=== PATIENT | female | born 1960 | race Caucasian/White ===

== ENCOUNTER 2019-04-28 16:46 | Emergency (ER) | payer SELFPAY ==
[2019-04-28] VITALS (7 sets, daily range): BP systolic 152–181; BP diastolic 101–122; PULSE 89–100; RESP 17–18; TEMP 36.1; O2SAT 95–98; BMI 24.2
--- NOTE | 2019-04-28 18:25 | CT_ITS ---
STUDY: CT BRAIN WITHOUT CONTRAST REASON FOR EXAM: Female, 58 years old. Slurred speech, blurred vision RADIATION DOSAGE (If Supplied By Facility): CTDIvol = ( 44.99 ) mGy, DLP = ( 779.24 ) mGycm TECHNIQUE: Transaxial CT imaging of the brain was performed without administration of intravenous contrast material. Individualized dose optimization techniques were used for this CT. COMPARISON: No relevant priors. FINDINGS: Normal soft tissue structures. Normal calvarium. Normal size ventricles and extra-axial spaces for the patient's age. Normal white matter tracts of the cerebral hemispheres. Normal basal ganglia and thalami. Normal brainstem. Normal cerebellum. There is no intracranial hemorrhage. There are no findings of an acute ischemic infarction. Normal visualized paranasal sinuses. CT/Brain/Head without Contrast IMPRESSION: Normal unenhanced CT scan of the brain. Electronically Signed: Anderson Wright MD at 19:07 EDT , Service support ,
--- NOTE | 2019-04-28 18:50 | RAD_ITS ---
STUDY: X-RAY CHEST REASON FOR EXAM: Female, 58 years old. Chest pain/pressure TECHNIQUE: PA and lateral views of the chest. COMPARISON: None. FINDINGS: There are interstitial fibrotic changes of the lungs. There is no demonstrated pleural abnormality. Normal size heart. Normal mediastinum and wing. Normal visualized pulmonary arteries. Normal visualized aortic arch and descending thoracic aorta. Normal visualized thoracic spine. Normal visualized ribs, clavicles, and shoulders. There is no demonstrated abnormality of the visualized soft tissue structures of the upper abdomen. RAD/Chest PA and Lateral IMPRESSION: Degenerative changes, as described above. No demonstrated acute cardiopulmonary process. Electronically Signed: Anderson Wright MD at 19:09 EDT , Service support ,
[2019-04-28 19:06] LABS: AST(SGOT) 13 U/L (15-37); Absolute Lymphocyte Count 1.79 X10^3/uL (0.83-4.51); Absolute Neutrophil Count 5.3 X10^3/uL (2.0-7.7); Alanine Aminotransfer ALT/SGPT 13 U/L (13-56); Albumin, Serum 3.2 g/dL (3.2-5.0); Alkaline Phosphatase 139 U/L (45-117); Anion Gap 7 (5-15); BUN 12 mg/dL (7-18); BUN/Creat Ratio 19.9 RATIO (10-20); Basophil# 0.05 X10^3/uL; Basophil% 0.6 % (0-1); Bilirubin, Direct 0.22 mg/dL (0.00-0.30); Calcium,Total 9.2 mg/dL (8.5-10.1); Chloride 100 mmol/L (98-107); EST Glomerular Filtration Rate 109 mL/min (>60); Eosinophil# 0.06 X10^3/uL; Eosinophils% 0.7 % (0-5); Est Glom Filt Rate - Afr Amer 132 mL/min (>60); Estimated Creatinine Clearance 105.61 ml/min; Globulin 4.5 g/dL (2.2-4.2); Glucose 105 mg/dL (74-106); Hematocrit 53.6 % (37-47); Lymphocyte # 1.79 X10^3/ul (4.0); Lymphocyte % 22.2 % (19-41); Mean Corp Hgb Conc 35.3 g/dL (32-36); Mean Corpuscular Hgb 38.3 pg (27.0-32.0); Mean Corpuscular Volume 108.5 fL (81-99); Mean Platelet Vol. 9.9 fl (6.2-12.0); Monocyte# 0.84 X10^3/uL; Monocyte% 10.4 % (0-10); NRBC Flagged by Analyzer 0 % (0-5); Neutrophil # 5.31 X10^3/uL (2.7-7.7); Neutrophil % 65.7 % (47-70); Platelet Count 209 K/mm3 (150-450); Potassium 3.2 mmol/L (3.5-5.1); Protein, Total 7.7 g/dL (6.4-8.2); RBC Distribution Width CV 12.5 % (11.6-14.6); RBC Distribution Width SD 50.4 fl (35.1-43.9); Red Blood Count 4.94 M/mm3 (4.2-5.4); Sodium Level 135 mmol/L (136-145); White Blood Count 8.1 K/mm3 (4.4-11.0)
[2019-04-28 19:12] LABS: POSITIVE COUNT NO; POSITIVE DIFFERENTIAL NO; POSITIVE MORPHOLOGY NO
[2019-04-28 19:14] LABS: Hemoglobin 18.9 g/dL (12.0-15.0)
[2019-04-28 19:27] LABS: Bacteria 0 SEEN /hpf (None Seen); Red Blood Cells-Urine 0 SEEN /hpf (0-5)
[2019-04-28 19:31] LABS: Color, Urine Yellow (Yellow); Glucose, Dipstick Normal (Normal); Ketone-Dipstick 5 mg/dl (Negative); Leukocyte Esterase-Dipstick 25 /ul (Negative); Nitrite-Dipstick Negative (Negative); Occult Blood-Urine Negative /ul (Negative); Protein-Dipstick 30 mg/dl (Negative); Specific Gravity, Urine 1.025 (1.002-1.030); Urine Clarity Sl. Cloudy (Clear); Urine Urobilinogen 4 mg/dl (Normal)
[2019-04-28 19:32] LABS: Urine Bilirubin Dipstick 1 mg/dL (Negative)
[2019-04-28 19:46] LABS: Mucous, Urine 2+ /hpf (<or=2+); Squamous Epithelial Cells - UA 0-5 SEEN /hpf (5-10)
[2019-04-28 19:47] LABS: White Blood Cells 0-5 SEEN /hpf (0-5)
--- NOTE | 2019-04-28 20:09 | ED.DCSUM_ITS ---
- ER Visit Summary Date of Service: 04/28/19 Chief Complaint: Elevated blood pressure History of Present Illness: The patient is a 58 F who presents emerged part with elevated blood pressure. She states that she was on blood pressure medications in the past but stopped them herself that 1/2 to 2 years ago. That time she was on hydrochlorothiazide and losartan. States that Sunday while at work she had a blood pressure checked it was 230/110. Over the weekend she had some abdominal cramps intermittent blurred vision sometimes she states that her speech was not clear she occasionally will feel clammy. States she is under a lot of stress at work due to the nature of it. She states that earlier today she is having some abdominal pain that felt like she needed to have diarrhea but nothing came for that. She is a smoker. Physical Examination: Afebrile vital signs are stable blood pressure 152/105 Gen: Well-nourished well-developed Head: Normocephalic atraumatic Eyes: Perrl EOMI ENT: TMs clear no rhinorrhea moist mucous membranes Neck: Supple no lymphadenopathy no JVD nontender CVS: Regular rate rhythm no murmurs normal S1-S2 Respiratory: No distress clear to auscultation bilaterally chest nontender Abdomen: Soft nontender nondistended normal bowel sounds no masses Back: Nontender Extremity: Nontender no edema Skin: Normal color no rash Neuro: alert orientated ?3 CN II-XII intact normal strength sensation reflexes gait cerebellar Psych: Depressed tearful anxious at times Test Results: EKG shows sinus rhythm at a rate of 87. Hemoglobin 18.9 sodium 135 potassium 3.2. Urine showed 30+ protein troponin negative chest x-ray negative CT brain negative Emergency Department Course and Treatment: I think the patient needs treated for her hypertension. I will start her losartan hydrochlorothiazide combination. She also would benefit from an antidepressant/anxiolytic. She is to follow-up with her primary care doctor and talk further about this. Of asked that she not focus on her blood pressure multiple times a day rather take sporadic reading and take them to her doctor. Impression: 1. Hypertension new diagnosis This note was generated with [employer] software. It may contain incorrect words, spelling, and punctuation that were not noted in review of the chart prior to signing ED Disposition - Plan for ED Patient: Disposition: Home or Assisted Living Instructions: HYPERTENSION, New (Begin Treatment) Prescriptions: Losartan/Hydrochlorothiazide [Losartan-Hctz 50-12.5 mg Tab] 1 ea PO DAILY #30 tab Prescription Printed Referrals: Oscar Marx [Primary Care Provider] - 1 Week Additional Instructions: Your potassium today was 3.2. I recommend you getting some additional foods that are high in potassium. He will be being placed on losartan and hydrochlorothiazide. Hydrochlorothiazide can decreased your potassium. Therefore I strongly recommend that you follow-up with your doctor and have your potassium rechecked. Please discuss stress and stress reduction with your doctor at that appointment.
[2019-04-28] MEDS: Losartan Potassium 50 MG Tablet PO (20:19)
[2019-04-28] MEDS: hydroCHLOROthiazide 12.5mg 12.5 MG PO (20:20)
== END 2019-04-28 20:23 | disposition home or self-care (01) ==
PROVIDERS: Emergency Provider Emergency Medicine; Family Provider Family Medicine
DX: I10 Essential (primary) hypertension (principal); R10.9 Unspecified abdominal pain; R05 Cough; R11.0 Nausea; H53.8 Other visual disturbances; R23.1 Pallor; Z91.14 Patient's other noncompliance with medication regimen; F17.200 Nicotine dependence, unspecified, uncomplicated
CPT/HCPCS: 70450; 71046; 80048; 80076; 81001; 84484; 85025; 93005; 99285; A4216

== ENCOUNTER 2019-05-15 20:15 | Observation (INO) | payer SELFPAY ==
[2019-04-28 16:47] VITALS: BMI 24.2
[2019-05-15] VITALS (7 sets, daily range): BP systolic 65–139; BP diastolic 40–87; PULSE 72–79; RESP 16–24; TEMP 36.4–36.8; O2SAT 94–99; BMI 24.5; BMI 23.7
--- NOTE | 2019-05-15 20:19 | ED.RN ---
CALLED FOR EKG PER RN REQUEST, PULLED OLD EKG FOR
[2019-05-15 20:31] LABS: Bedside Glucose 116 mg/dL (70-110)
--- NOTE | 2019-05-15 20:32 | EKG12_ITS ---
Test Reason : Blood Pressure : / mmHG Vent. Rate : 069 BPM Atrial Rate : 069 BPM P-R Int : 162 ms QRS Dur : 102 ms QT Int : 436 ms P-R-T Axes : 019 -04 047 degrees QTc Int : 467 ms Normal sinus rhythm Septal infarct , age undetermined Abnormal ECG Confirmed by ADAN MCNAMARA, TIFFANIE ([id number]), visual effects editor DONOVAN [place] ([id number]) on 05/21/2019 9:37:35 AM Referred By: LUZMA Confirmed By:FREDRICK ARELLANO MD
--- NOTE | 2019-05-15 20:32 | RAD_ITS ---
STUDY: X-RAY CHEST REASON FOR EXAM: Female, 58 years old. Syncope TECHNIQUE: Frontal view COMPARISON: April 28, 2019 FINDINGS: The lungs are expanded. Mild pulmonary interstitial prominence. Normal size heart. Normal mediastinum and wing. Normal visualized pulmonary arteries. Normal visualized aortic arch and descending thoracic aorta. Mild degenerative changes of the thoracic spine. Normal visualized ribs, clavicles, and shoulders. There is no demonstrated abnormality of the visualized soft tissue structures of the upper abdomen. RAD/Chest 1 View (Portable) IMPRESSION: Mild pulmonary interstitial prominence. Electronically Signed: Nikhil Turner DO at 20:54 EDT Tel [phone], Service support ,
--- NOTE | 2019-05-15 20:37 | ED.VIS.GEN ---
History of Present Illness Chief Complaint: Syncope Informant: Patient, Family Onset: Today Current Severity: Mild Narrative: Patient presents with syncope at home, she indicates she has history of hypertension she presents the emergency department with a blood pressure about 80 over palp she complains of generalized fatigue. She indicates she has no history of [place] PE or DVT no nausea vomiting no diarrhea constipation normal bowel bladder habits. She indicates takes her blood pressure medicines in the morning Indicates that she basically had a normal day today she is quite active when shopping was at home with eating whipping batter to make baking items when the daughter reports she fell to the ground she had no obvious seizure activity no incontinence no obvious injury and she was brought to the hospital. Other than complaining of generalized fatigue she has no complaints, she indicates the blood pressure medicines are duration about a few weeks and she has not been sick in any other way and felt fine and again was able to execute all of her daily activities had a very active day shopping Past Medical History - Allergies and Home Meds Allergies/Adverse Reactions: Allergies No Known Allergies Allergy (Verified 05/15/19 20:24) Primary Care Physician: Oscar Marx [[facility]] - Past Medical History: - Smoking Status: Current every day smoker Review of Systems ROS: - Hypertension General: Reports: - - Generalized fatigue denies chest pain fever cough abdominal pain numbness weakness or paresthesias. Denies: Chills, Fever, Sweats Eyes: Denies: Visual changes - bilaterally, Diplopia ENT: Denies: Rhinorrhea, Sore throat Cardiovascular: Denies: Chest pain, Palpitations Respiratory: Denies: Dyspnea, Cough, Dyspnea on exertion Gastrointestinal: Denies: Abdominal pain, Nausea, Vomiting, Diarrhea, Melena, Hematochezia Genitourinary: Denies: Dysuria, Hematuria, Frequency Musculoskeletal: Denies: Back pain, Extremity Pain Skin: Denies: Rash, Wounds Neurological: Denies: Headache, Weakness, Numbness Physical Exam Vital Signs/Narrative: Vital Signs Temp Pulse Resp BP Pulse Ox 05/15/19 20:26 82/54 L 05/15/19 20:21 74 98 05/15/19 20:16 97.5 F L 78 18 65/40 L 95 General: Well nourished, Well developed, No Acute Distress, - - Blood pressure is about 80 over palp is improved to about 90 over palp with initial fluid bolus she is awake alert moving all 4 extremities Head: Normocephalic, Atraumatic, - - Nonspecific pain to the head she may have struck her head when she fell nothing focal Eyes: Perrl, EOMI ENT: Moist mucous membranes, No rhinorrhea Neck: Supple, Nontender, - - Has full range of motion of her neck Cardiovascular: Regular rate, Regular rhythm, No murmurs Respiratory: No distress, CTA bilaterally, Chest nontender Abdomen: Soft, Nontender, Nondistended, Normal bowel sounds Back: Nontender, Normal Inspection Extremities: Nontender, No edema Skin: Normal color, No rash Neurological: Alert, Oriented x3, Cranial nerves II-XII grossly intact, Normal Strength, Normal Sensation Psychological: Normal affect, Normal Mood Diagnostic/Tx/Re-eval - Medical Decision Making The differential is extensive, she has no chest pain no fever no cough no signs of fluid loss, her EKG shows a sinus rhythm rate of 70 no injury pattern intervals appear within normal range QRS durations are normal she is resting in the bed just complaining of fatigue She is screening labs are generally unremarkable except her d-dimer slightly elevated to about 0.80, she is received 2 L of fluid her blood pressure now is about 120/80, she was sent for CTA CT head CT neck chest x-ray the CTA shows no signs of PE or gross abnormality otherwise see that report CT head shows nothing acute, chest x-ray shows pulmonary prominence, see those reports, CT cervical spine pending she is remained hemodynamically stable here with a blood pressure about 120/80 complains of diffuse fatigue even all the above the syncope of hypotension have asked the hospital see her for the management and admission Admit stable Final impression Hypotension etiology unclear Syncope ED Disposition - Plan for ED Patient: Diagnosis: Hypotension, Syncope head injury Referrals: Oscar Marx [[facility]] -
[2019-05-15] MEDS: 0.9% Normal Saline 1,000 ML 1000 ML IV ×2 (20:43)
[2019-05-15 20:45] LABS: Absolute Lymphocyte Count 1.46 X10^3/uL (0.83-4.51); Absolute Neutrophil Count 6.8 X10^3/uL (2.0-7.7); Basophil# 0.05 X10^3/uL; Basophil% 0.5 % (0-1); Eosinophil# 0.04 X10^3/uL; Eosinophils% 0.4 % (0-5); Hematocrit 48.1 % (37-47); Hemoglobin 16.9 g/dL (12.0-15.0); Lymphocyte # 1.46 X10^3/ul (4.0); Lymphocyte % 15.6 % (19-41); Mean Corp Hgb Conc 35.1 g/dL (32-36); Mean Corpuscular Hgb 37.8 pg (27.0-32.0); Mean Corpuscular Volume 107.6 fL (81-99); Mean Platelet Vol. 9.5 fl (6.2-12.0); Monocyte# 1.03 X10^3/uL; NRBC Flagged by Analyzer 0 % (0-5); Neutrophil # 6.75 X10^3/uL (2.7-7.7); Neutrophil % 72.1 % (47-70); Platelet Count 257 K/mm3 (150-450); RBC Distribution Width CV 11.7 % (11.6-14.6); RBC Distribution Width SD 46.8 fl (35.1-43.9); Red Blood Count 4.47 M/mm3 (4.2-5.4); White Blood Count 9.4 K/mm3 (4.4-11.0)
[2019-05-15 20:56] LABS: D-Dimer Quantitative (DVT/PE) 0.72 FEU/ug/m (0.27-0.49)
--- NOTE | 2019-05-15 20:57 | ED.RN ---
d-dimer of 0.72 reported to . verbalized understanding
--- NOTE | 2019-05-15 21:00 | CT_ITS ---
STUDY: CTA CHEST REASON FOR EXAM: Female, 58 years old. Passed out RADIATION DOSAGE (If Supplied By Facility): CTDIvol = ( 14.06 ) mGy, DLP = ( 452.99 ) mGycm TECHNIQUE: The examination was performed with the intravenous administration of IV Isovue 370 100. Post-processing of the angiographic images was performed, with multiplanar reformation and 3D reconstruction. Individualized dose optimization techniques were used for this CT. COMPARISON: None. FINDINGS: Normal enhancement of the main pulmonary artery and right and left pulmonary arteries. Normal enhancement of the bilateral peripheral pulmonary arteries. There is no demonstrated pulmonary embolism. Normal thoracic aorta and visualized great vessels. There is no demonstrated aortic dissection. Normal heart and pericardium. Adenopathy is noted in the mediastinum. Normal hilar regions. Normal visualized trachea and bronchi. The lungs are well expanded. Normal pulmonary parenchyma. Normal pleura. Normal chest wall structures. Degenerative vertebral changes. Hiatal hernia. CT/CTA Chest W/WO Contrast IMPRESSION: No demonstrated pulmonary embolism or arterial dissection. Mediastinal adenopathy requiring further evaluation. Hiatal hernia. Electronically Signed: Nikhil Turner DO at 22:28 EDT Tel [phone], Service support ,
[2019-05-15 21:13] LABS: Anion Gap 11 (5-15); BUN 19 mg/dL (7-18); BUN/Creat Ratio 13.6 RATIO (10-20); Calcium,Total 8.6 mg/dL (8.5-10.1); Chloride 95 mmol/L (98-107); EST Glomerular Filtration Rate 41 mL/min (>60); Est Glom Filt Rate - Afr Amer 50 mL/min (>60); Estimated Creatinine Clearance 45.26 ml/min; Glucose 116 mg/dL (74-106); Sodium Level 132 mmol/L (136-145)
[2019-05-15 21:14] LABS: BNP,B-Type NATRIURETIC PEPTIDE 16.3 pg/mL (0-100)
--- NOTE | 2019-05-15 21:39 | ED.RN ---
PT C/O HEADACHE. DR LUIS NOTIFIED
--- NOTE | 2019-05-15 21:44 | CT_ITS ---
STUDY: CT CERVICAL SPINE WITHOUT CONTRAST REASON FOR EXAM: Female, 58 years old. Passed out RADIATION DOSAGE (If Supplied By Facility): CTDIvol = ( 23.19 ) mGy, DLP = ( 522.64 ) mGycm TECHNIQUE: High resolution transaxial imaging was performed without contrast material. Sagittal and coronal images were reconstructed. Individualized dose optimization techniques were used for this CT. COMPARISON: None FINDINGS: Normal craniovertebral junction. Normal anterior atlantoaxial articulation. Normal odontoid process. Normal cervical lordosis. Normal vertebral bodies and posterior osseous elements. C2-3: Normal endplates. Normal disc height and morphology. Normal central canal and intervertebral neuroforamina. C3-4: Normal endplates. Normal disc height and morphology. Normal central canal and intervertebral neuroforamina. C4-5: Normal endplates. Normal disc height and morphology. Normal central canal and intervertebral neuroforamina. C5-6: Spurring at the endplates. Normal disc height and morphology. Normal central canal and intervertebral neuroforamina. C6-7: Spurring at the endplates. Normal disc height with trace annular bulge. Mild posterior spurring protruding into the central canal. Minimal uncovertebral spurring slightly protruding into the right intervertebral neural foramen. C7-T1: Spurring at the endplates. Slightly depressed superior endplate of T1. Normal disc height and morphology. Normal central canal and intervertebral neuroforamina. Normal visualized soft tissue structures. CT/Spine Cervical without Contras IMPRESSION: Mild degenerative changes of the cervical spine. Electronically Signed: Nikhil Turner DO at 22:37 EDT Tel [phone], Service support ,
--- NOTE | 2019-05-15 21:44 | CT_ITS ---
STUDY: CT BRAIN WITHOUT CONTRAST REASON FOR EXAM: Female, 58 years old. Passed out RADIATION DOSAGE (If Supplied By Facility): CTDIvol = ( 44.99 ) mGy, DLP = ( 779.24 ) mGycm TECHNIQUE: Transaxial CT imaging of the brain was performed without administration of intravenous contrast material. Individualized dose optimization techniques were used for this CT. COMPARISON: April 28, 2019 FINDINGS: Normal soft tissue structures. Normal calvarium. Normal size ventricles and extra-axial spaces for the patient's age. Normal white matter tracts of the cerebral hemispheres. Normal basal ganglia and thalami. Normal brainstem. Normal cerebellum. There is no intracranial hemorrhage. Intravascular contrast from previous CT chest limits evaluation. There are no findings of an acute ischemic infarction. Normal visualized paranasal sinuses. CT/Brain/Head without Contrast IMPRESSION: Normal limited unenhanced CT scan of the brain. Electronically Signed: Nikhil Turner DO at 22:18 EDT Tel [phone], Service support ,
[2019-05-15] MEDS: Acetaminophen 500 MG Tablet 1000 MG PO (22:31)
--- NOTE | 2019-05-15 23:15 | PCM.HP.STD ---
Problem List (1) Syncope and collapse Status: Acute (2) Anxiety and depression Status: Chronic (3) Hypertension Status: Chronic (4) Dyslipidemia Status: Chronic (5) Cervical radiculopathy Status: Chronic History of Present Illness Date of Admission: 05/15/19 Chief Complaint: Pass out/unconscious 2 times The patient is a 58 year old F with multiple comorbidities including hypertension, anxiety was brought in by EMS for 2 episodes of unconsciousness. 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 She felt dizzy, lightheaded, diaphoretic and sweating and then passed out for about 30 seconds as per the daughter was the witness. After that she came back to senses again passed out for about 2 to 3 minutes. Patient looks anxious. Denied nausea, vomiting or diarrhea but has significant constipation for 2 weeks. She passes small minute like stool about every 2 to 3 days. She also complained of increased frequency and urgency without complete emptying of bladder. She denies any chest pain or shortness of breath or palpitations/missed heartbeat. As per the daughter, during unconscious period, her breathing was shallow. She also has chronic neck pain which got worse the last 2 to 3 weeks. Before passing out she felt neck pain with numbness and tingling shooting from neck to both arms and fingers. This is resolved now. Denies any focal weakness, alteration in the speech or facial droop. No previous history of seizure/stroke/migraine headache. No previous history of GA. Possible has COPD with history of his smoking a pack since early 20s. In ED, blood pressure was low 65/40 which improved with IV fluid 139/87. Heart rate in 70s. No hypoxia or tachypnea. EKG normal sinus rhythm 69 bpm with QTC 407 ms. EMS EKG shows sinus rhythm at [address] elevation in V2, LAD with LAFB. Zoar deviation seems more with the position of lead since it is not in the ER EKG Past Medical History Past Medical History (Chronic Problems): Chronic Problems Anxiety and depression (Chronic) Hypertension (Chronic) Dyslipidemia (Chronic) Cervical radiculopathy (Chronic) Allergies No Known Allergies Allergy (Verified 05/15/19 20:24) Home Medications: Ambulatory Orders Medication Instructions Recorded Losartan/Hydrochlorothiazide 1 ea PO DAILY #30 tab 04/28/19 [Losartan-Hctz 50-12.5 mg Tab] Atorvastatin Calcium 20 mg PO DAILY 05/15/19 Gabapentin [Neurontin] 300 mg PO TID 05/15/19 Sertraline HCl [Zoloft] 50 mg PO DAILY 05/15/19 Smoking Status: Current every day smoker - A pack per day since early 20s Alcohol: Occasional Drugs: None - *Family History Paternal History Items: No pertinent history - Of coronary artery disease/GA/stroke in first-degree family relative. Review of Systems Constitutional: Reports: Malaise, Weakness, Fatigue. Denies: Chills, Fever, Weight Change HEENT: Denies: Head Aches, Sinus Congestion, Sinus Drainage Cardiovascular: Reports: Syncope. Denies: Chest Pain, Palpitations Respiratory: Denies: Cough, Shortness of breath at rest, Sputum production Gastrointestinal: Reports: Abdominal Pain - Hypogastrium/pelvic pain, Constipation, Nausea. Denies: Vomiting Genitourinary: Reports: Frequency, Retention - Incomplete emptying, Urgency. Denies: Dysuria Musculoskeletal: Reports: Joint Pain, Neck Pain. Denies: Joint Tenderness Skin: Denies: Rash, Wounds Neurological: Denies: Numbness, Tingling, Focal weakness Psychiatric: Reports: Anxiety, Depression. Denies: Homicidal Ideations, Suicidal Ideations Hematologic/ Lymphatic: Denies: Easy Bruising, Easy Bleeding VTE Information - Inpt Only VTE Present on Admission: No VTE Mechan Device Prophylaxis: None VTE Pharm Prophylaxis ordered?: Yes Patient Problems: Active and Suspected Problems Hypotension (Acute) Syncope and collapse (Acute) - Physical Exam General: Alert, Oriented x3, Cooperative HEENT: Atraumatic, PERRLA, EOMI, Normocephalic Oral: Dry Mucosa Neck: Supple, No JVD, Negative Carotid Bruits Lungs: Clear to auscultation, Normal air movement, No rhonchi, No wheeze, No rales Cardiovascular: Regular rate, Regular Rhythm, Normal S1, Normal S2, No murmurs Abdomen: Bowel Sounds Present, Soft, Non Tender, Non-Distended Extremities: No edema, Capillary Refill Less than 3 Seconds Skin: No rashes, No breakdown Musculoskeletal: No Tenderness to Palpation of Joints or Extremities, Arthritic Changes Neurological: Cranial nerves II-XII grossly intact, Deep Tendon Reflexes 2+/4 and Symmetrical, Neuro grossly intact, Motor Exam 5/5 strength throughout, - - Complete NIH stroke scale was done. Score 0. No facial droop. Psych/Mental Status: Anxious, Depressed Vital Signs Temp Pulse Resp BP Pulse Ox 97.5 F L 73 23 H 139/87 H 94 05/15/19 20:16 05/15/19 22:12 05/15/19 22:12 05/15/19 22:12 05/15/19 22:12 Oxygen Flow Rate (L/min) 2 Oxygen Delivery Method Nasal Cannula Weight: 161 lb 2.526 oz Body Mass Index (BMI) 24.5 Finger Stick Blood Glucose 116 Intake and Output for Last 24 Hours 05/13/19 05/14/19 05/15/19 23:59 23:59 23:59 Intake Total 1000 / 1000 Balance 1000 / 1000 Laboratory Tests Past 24 Hrs 05/15/19 05/15/19 05/15/19 20:20 20:20 20:20 WBC 9.4 RBC 4.47 Hgb 16.9 H Hct 48.1 H MCV 107.6 H MCH 37.8 H MCHC 35.1 RDW Std Deviation 46.8 H RDW Coeff of Jose 11.7 Plt Count 257 MPV 9.5 Immature Gran % (Auto) 0.400 Neut % (Auto) 72.1 H Lymph % (Auto) 15.6 L Campbell % (Auto) 11.0 H Eos % (Auto) 0.4 Baso % (Auto) 0.5 Absolute Neuts (auto) 6.8 Absolute Lymphs (auto) 1.46 Nucleated RBC % 0 D-Dimer Quant (PE/DVT) 0.72 H* Sodium 132 L Potassium 4.0 Chloride 95 L Carbon Dioxide 26.0 Anion Gap 11 BUN 19 H Creatinine 1.40 H Estim Creat Clear Calc 45.26 Est GFR (MDRD) Af Amer 50 L Est GFR (MDRD) Non-Af 41 L BUN/Creatinine Ratio 13.6 Glucose 116 H Calcium 8.6 Troponin I < 0.015 B-Natriuretic Peptide 05/15/19 20:20 WBC RBC Hgb Hct MCV MCH MCHC RDW Std Deviation RDW Coeff of Jose Plt Count MPV Immature Gran % (Auto) Neut % (Auto) Lymph % (Auto) Campbell % (Auto) Eos % (Auto) Baso % (Auto) Absolute Neuts (auto) Absolute Lymphs (auto) Nucleated RBC % D-Dimer Quant (PE/DVT) Sodium Potassium Chloride Carbon Dioxide Anion Gap BUN Creatinine Estim Creat Clear Calc Est GFR (MDRD) Af Amer Est GFR (MDRD) Non-Af BUN/Creatinine Ratio Glucose Calcium Troponin I B-Natriuretic Peptide 16.3 POC Glucose 05/15/19 20:19 POC Glucose 116 H Assessment/Plan All Active Problems Hypotension (Acute) Syncope and collapse (Acute) The patient is a 58 year old F with multiple comorbidities including hypertension, anxiety was brought in by EMS for 2 episodes of unconsciousness. 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 She felt dizzy, lightheaded, diaphoretic and sweating and then passed out for about 30 seconds as per the daughter was the witness. She also complained of increased frequency and urgency with incomplete emptying of bladder. In ED, blood pressure was low 65/40 which improved with IV fluid 139/87. Heart rate in 70s. No hypoxia or tachypnea. EKG normal sinus rhythm 69 bpm with QTC 407 ms. EMS EKG shows sinus rhythm at [address] elevation in V2, LAD with LAFB. LAD seems more with the position change of lead since it is not in the ER EKG Patient had CT brain, CT C-spine does not show acute change. Further she had CTPA which did not show PE. 1. Syncope with collapse with 2 episodes of unconsciousness: patient denies any major injury. Patient is being admitted in PCU. IV fluid normal saline. Orthostatic vitals. Serial troponin enzymes to rule out acute coronary syndrome. NIH stroke scale is 0. MRI brain and MRI C-spine ordered. 2D echo is ordered. Patient will need neurology consult if something abnormal found in the MRI brain. 2. Hypotension probably because of syncope and collapse, side effect of antihypertensive medication: Patient was hypotensive in ER. This may be probably e due to antihypertensive medication, on losartan/HCTZ 50-12.5 mg which was prescribed on 04/28/[address] Puente when she came for hypertension. Hold this medication. Titrate blood pressure and if needed can resume losartan/HCTZ at lower dose. 3. Hyperglycemia: Accu-Chek essences and cover with below sliding scale. A1c tomorrow a.m to diagnose or rule out diabetes mellitus. 4. Acute kidney injury mostly secondary to HCTZ/losartan and dehydration: Patient has hyponatremia, hypochloremia, elevated BUN/creatinine 19/1.4. Baseline BUN/creatinine 12/0.6 on April 28, 2019. 4. Cervical radiculopathy: History of chronic neck pain with numbness and tingling. MRI C-spine ordered. Can resume Neurontin once she is more awake and alert. 4. No urinary tract symptoms with severe constipation: X-ray abdomen with pelvis ordered. UA with urine culture ordered. CT chest shows hiatus hernia possible fecal matter in colon loops. Other comorbidities include dyslipidemia, anxiety and depression: Home medication reconciliation done. DVT prophylaxis: On Lovenox 40 g subcu daily Laboratory Results 05/15/19 20:19: POC Glucose 116 H 05/15/19 20:20: WBC 9.4, RBC 4.47, Hgb 16.9 H, Hct 48.1 H, MCV 107.6 H, MCH 37.8 H, MCHC 35.1, RDW Std Deviation 46.8 H, RDW Coeff of Jose 11.7, Plt Count 257, MPV 9.5, Immature Gran % (Auto) 0.400, Neut % (Auto) 72.1 H, Lymph % (Auto) 15.6 L, Campbell % (Auto) 11.0 H, Eos % (Auto) 0.4, Baso % (Auto) 0.5, Absolute Neuts (auto) 6.8, Absolute Lymphs (auto) 1.46, Nucleated RBC % 0 05/15/19 20:20: D-Dimer Quant (PE/DVT) 0.72 H* 05/15/19 20:20: Sodium 132 L, Potassium 4.0, Chloride 95 L, Carbon Dioxide 26.0, Anion Gap 11, BUN 19 H, Creatinine 1.40 H, Estim Creat Clear Calc 45.26, Est GFR (MDRD) Af Amer 50 L, Est GFR (MDRD) Non-Af 41 L, BUN/Creatinine Ratio 13.6, Glucose 116 H, Calcium 8.6, Troponin I < 0.015 05/15/19 20:20: B-Natriuretic Peptide 16.3 Clinical Impression(s) from Imaging Studies Chest X-Ray 05/15/19 20:32 IMPRESSION: Mild pulmonary interstitial prominence. Chest CTA 05/15/19 21:00 IMPRESSION: No demonstrated pulmonary embolism or arterial dissection. Mediastinal adenopathy requiring further evaluation. Hiatal hernia. Brain CT 05/15/19 21:44 IMPRESSION: Normal limited unenhanced CT scan of the brain. Cervical Spine CT 05/15/19 21:44 IMPRESSION: Mild degenerative changes of the cervical spine. Code Visit OBSV E&M: 70773 Initial observation care L3
--- NOTE | 2019-05-15 23:54 | RAD_ITS ---
STUDY: X-RAY - ABDOMEN/PELVIS REASON FOR EXAM: Female, 58 years old. Suprapubic pain TECHNIQUE: AP supine and upright views of the abdomen and pelvis. COMPARISON: None. FINDINGS: Increased interstitial markings are noted in the lung bases suggesting chronic interstitial lung disease. There is an unremarkable bowel gas pattern. There is no demonstrated free abdominal air. The visualized liver, spleen and kidneys are grossly normal in size and morphology. Normal soft tissue structures. Normal visualized osseous structures. RAD/Abd Inc Decub and/or Erect IMPRESSION: No acute abnormality of the abdomen and pelvis. Electronically Signed: Rocio Franco, at 1:52 EDT Tel , Service support ,
[2019-05-16] VITALS (8 sets, daily range): BP systolic 115–149; BP diastolic 74–88; PULSE 55–75; RESP 16–18; TEMP 36.5–36.8; O2SAT 94–95
--- NOTE | 2019-05-16 00:38 | MRI_ITS ---
STUDY: MRI CERVICAL SPINE WITHOUT CONTRAST REASON FOR EXAM: Female, 58 years old. TECHNIQUE: Standardized fat and water weighted pulse sequences were obtained in the sagittal and axial planes. COMPARISON: None FINDINGS: Normal foramen magnum and brainstem-cervical cord junction. Normal craniovertebral junction. Normal anterior atlantoaxial articulation. Normal odontoid process. Normal cervical lordosis. Normal vertebral bodies and posterior osseous elements. C2-3: Normal endplates. Normal disc height, signal and morphology. Normal central canal and intervertebral neural foramina. C3-4: Normal endplates. Normal disc height, signal and morphology. Normal central canal and intervertebral neural foramina. C4-5: Normal endplates. Normal disc height, signal and morphology. Normal central canal and intervertebral neural foramina. C5-6: Normal endplates. Normal disc height, signal and morphology. Normal central canal and intervertebral neural foramina. C6-7: Normal endplates. Mild diffusely bulging disc is noted at this location with no evidence of disc herniation or central spinal stenosis. C7-T1: Normal endplates. Normal disc height, signal and morphology. Normal central canal and intervertebral neural foramina. Normal cervical cord. No abnormal focal areas of increased signal are identified. No evidence of a Chiari I malformation is seen. Normal visualized soft tissue structures. MRI/Spine Cervical (Routine) IMPRESSION: A mild diffusely bulging disc is noted at the C6-7 intervertebral disc space level with no evidence of disc herniation or spinal stenosis. Electronically Signed: Pankaj Hernández, at 11:29 EDT Tel , Service support ,
[2019-05-16] MEDS: Polyethylene Glycol 3350 17 GM PACKET PO ×2 (01:00→11:39)
[2019-05-16] MEDS: 0.9% Normal Saline 1,000 ML 100 ML IV ×2 (01:00→11:40)
[2019-05-16] MEDS: Enoxaparin 40 MG/0.4 ML Syringe SC (01:00)
[2019-05-16 01:21] LABS: AST(SGOT) 20 U/L (15-37); Alanine Aminotransfer ALT/SGPT 9 U/L (13-56); Albumin, Serum 2.9 g/dL (3.2-5.0); Alkaline Phosphatase 107 U/L (45-117); Bilirubin, Direct 0.12 mg/dL (0.00-0.30); Globulin 4.1 g/dL (2.2-4.2); Magnesium 1.7 mg/dL (1.6-2.6)
[2019-05-16] MEDS: Acetaminophen 325 MG Tablet 650 MG PO (03:52)
[2019-05-16] MEDS: 0.9% NaCl Peripheral Flush Adult/Peds IV ×3 (03:52→11:02)
[2019-05-16 04:09] LABS: Bacteria 0 SEEN /hpf (None Seen); Mucous, Urine 0 SEEN /hpf (<or=2+); Red Blood Cells-Urine 0 SEEN /hpf (0-5); White Blood Cells 0 SEEN /hpf (0-5)
[2019-05-16 04:27] LABS: Color, Urine Yellow (Yellow); Glucose, Dipstick Normal (Normal); Ketone-Dipstick Negative (Negative); Leukocyte Esterase-Dipstick Negative /ul (Negative); Nitrite-Dipstick Negative (Negative); Occult Blood-Urine Negative /ul (Negative); Protein-Dipstick Negative (Negative); Urine Bilirubin Dipstick Negative (Negative); Urine Clarity Clear (Clear); Urine Urobilinogen Normal (Normal)
[2019-05-16 04:42] LABS: Squamous Epithelial Cells - UA 0-5 SEEN /hpf (5-10)
--- NOTE | 2019-05-16 05:55 | MRI_ITS ---
STUDY: MRI BRAIN WITHOUT CONTRAST REASON FOR EXAM: Female, 58 years old. TECHNIQUE: Standardized multiplanar fat and water weighted pulse sequences were obtained. COMPARISON: Prior CT scan dated the05/24/2019. FINDINGS: The diffusion weighted axial images and ADC map images of the head show no evidence of restricted diffusion. The tg, medulla and midbrain and cerebellum appear to be normal. The ventricles and sulci are normal in size and shape. The cerebral hemispheres appear to be normal.The basal ganglia appear to be normal. No enhancing masses or lesions are seen. The gradient echo axial images are normal. No evidence of a Chiari I malformation is identified. The V4 segments of the vertebral artery, the basilar artery, the posterior cerebral arteries, the cavernous and supraclinoid carotid arteries, and the M1 segments of the middle cerebral arteries are all normal The orbits including the optic nerves and optic chiasm appear normal. The pituitary and pituitary infundibulum appear to be normal. The inner and outer tables of the skull are normal The frontal, ethmoid, maxillary, and sphenoid sinuses are normal. There is some nasal septal deviation with a convexity toward the right. The mastoid air cells are normal. MRI/Brain without Contrast IMPRESSION: Normal unenhanced MRI of the brain. Electronically Signed: Pankaj Hernández, at 11:14 EDT Tel , Service support ,
--- NOTE | 2019-05-16 05:55 | ECHOD_ITS ---
Reason For Study: Syncope Procedure This was a 2D Doppler, Color Flow transthoracic echocardiogram. Exam performed portable in patient room. Left Ventricle Normal LV size. The estimated ejection fraction is 60 %. No evidence for diastolic dysfunction. No regional wall motion abnormalities noted. Right Ventricle Normal RV size. Normal systolic function. Atria Normal left atrium. Normal right atrium. No doppler evidence for ASD. Mitral Valve There is no mitral valve stenosis. No mitral valve insufficiency. Tricuspid Valve There is no tricuspid stenosis. Unable to estimate RV systolic pressure due to inadequate jet, pulmonary artery pressure probably normal. Aortic Valve Trisinus/trileaflet aortic valve. Aortic sclerosis, no stenosis. There is no aortic stenosis. No aortic valve insufficiency. Pulmonic Valve There is no pulmonic valvular stenosis. No pulmonic valve insufficiency. Great Vessels Normal aortic root. Pericardium/Pleural No pericardial effusion. MMode/2D Measurements & Calculations LVIDd: 4.4 cm IVSd: 1.4 cm Ao root diam: 3.4 cm LVIDs: 2.9 cm LVPWd: 1.4 cm RVDd: 4.0 cm FS: 34.9 % LAV(MOD-bp): 41.7 ml LVAd ap4: 22.1 cm2 SV(MOD-sp4): 37.4 ml LAV(MOD-bp) Indexed: 22.7 ml/m2 EDV(MOD-sp4): 55.1 ml LAV(MOD-sp2): 45.9 ml EDV(sp4-el): 57.0 ml LAV(MOD-sp4): 33.7 ml LVAs ap4: 11.0 cm2 ESV(MOD-sp4): 17.7 ml ESV(sp4-el): 17.6 ml EF(MOD-sp4): 67.9 % EF(sp4-el): 69.1 % SV(sp4-el): 39.4 ml LA A4 area: 15.6 cm2 LA dimension(2D): 3.6 cm RA A4 area: 15.2 cm2 Doppler Measurements & Calculations MV E max jose miguel: 77.6 cm/sec Lat Peak E' Jose Miguel: 9.0 cm/sec Med Peak E' Jose Miguel: 5.3 cm/sec MV A max jose miguel: 92.7 cm/sec E/E' lat: 8.7 E/E' med: 14.7 MV E/A: 0.84 Ao V2 max: 170.8 cm/sec LV V1 max: 116.2 cm/sec PA V2 max: 86.1 cm/sec Ao max P.7 mmHg LV V1 max P.4 mmHg Ao V2 mean: 121.3 cm/sec Ao mean P.4 mmHg Ao V2 VTI: 38.7 cm Interpretation Summary The estimated ejection fraction is 60 %. No evidence for diastolic dysfunction. Aortic sclerosis, no stenosis. Ordering Physician: Lencho Black Referring Physician: Brian Sue Performed By: Isamar Pang RDCS, RVT
[2019-05-16 06:50] LABS: Bedside Glucose 93 mg/dL (70-110)
[2019-05-16 07:37] LABS: Anion Gap 7 (5-15); BUN 17 mg/dL (7-18); BUN/Creat Ratio 20.5 RATIO (10-20); Calcium,Total 8.5 mg/dL (8.5-10.1); Chloride 99 mmol/L (98-107); Cholesterol 140 mg/dL (200); Creatinine, Serum 0.83 mg/dL (0.55-1.02); EST Glomerular Filtration Rate 75 mL/min (>60); Est Glom Filt Rate - Afr Amer 91 mL/min (>60); Estimated Creatinine Clearance 76.35 ml/min; Glucose 86 mg/dL (74-106); High Density Lipoprotein 22 mg/dL; Potassium 3.5 mmol/L (3.5-5.1); Sodium Level 135 mmol/L (136-145); Thyroid Stim Hormone (TSH) 1.44 uIU/mL (0.358-3.74); Triglycerides 157 mg/dL; Very Low Density Lipoprotein 31 mg/dL (5-40)
[2019-05-16 07:56] LABS: Hemoglobin A1c 5.2 % (4.2-6.3)
--- NOTE | 2019-05-16 08:20 | NURSING ---
Saline Locked pt as Transport here to take to MRI.
--- NOTE | 2019-05-16 10:37 | NURSING ---
Getting Echo done in room at this time.
[2019-05-16] MEDS: proCHLORPERazine 10 MG/2 ML Vial IV (11:01)
[2019-05-16] MEDS: oxyCODONE 5 MG Tablet PO ×2 (11:29→17:58)
[2019-05-16] MEDS: Senna/Docusate Sodium 1 Tablet 2 TABLET PO (11:29)
[2019-05-16] MEDS: Sertraline 50 MG Tablet PO (11:29)
[2019-05-16] MEDS: Famotidine 20 MG Tablet PO (11:30)
[2019-05-16 11:50] LABS: Bedside Glucose 147 mg/dL (70-110)
--- NOTE | 2019-05-16 12:24 | CASEMGMT ---
SW spoke with patient as she is self pay. She said she goes to [facility] for her medical care as it is based on her income. She said she has been able to afford her medications as long as they are for 30 days. IGNACIO told her about [email or web address]. SW told her SW will watch for her d/c medications to make sure they are not too expensive. Magaly GARCIA MSW
[2019-05-16] MEDS: Bisacodyl 10 MG Suppository RECTAL (14:48)
--- NOTE | 2019-05-16 15:04 | DCINST_ITS ---
- Discharge Diagnoses Current Active Problems: Current Active and Chronic Problems Hypotension (Acute) Syncope and collapse (Acute) Anxiety and depression (Chronic) Hypertension (Chronic) Dyslipidemia (Chronic) Cervical radiculopathy (Chronic) You will use the following diet at home:: Cardiac Discharge Activity: Return to Normal Activity Call your doctor if you observe: Shortness of breath, Dizziness, Fainting spells, Chest pain Allergies/Adverse Reactions: Allergies No Known Allergies Allergy (Verified 05/15/19 20:24) Medications to take at Discharge Atorvastatin Calcium 20 mg PO DAILY 05/15/19 Gabapentin [Neurontin] 300 mg PO TID 05/15/19 Sertraline HCl [Zoloft] 50 mg PO DAILY 05/15/19 Losartan Potassium 50 mg PO DAILY #30 tab 05/16/19 The following prescriptions were given: Losartan Potassium 50 mg PO DAILY #30 tab Transmission Status: Pending to [id number] Primary Care Physician: Oscar Marx [[facility]] - Please follow up with your Primary Care Physician in: 3-5 days Test Results: Test results from this visit will be discussed in further detail at your follow- up appointment, if applicable. Proposed Discharge Date: 05/16/19
--- NOTE | 2019-05-16 15:05 | PCM.DC.SUM ---
<Martina Arellano - Last Filed: 05/16/19 15:20> Discharge Date and Diagnosis Date of Admission: 05/15/19 Date of Discharge: 05/16/19 - Primary Discharge Diagnosis Active and Suspected Problems 1. Syncope 2. Hypotension 3. Acute kidney injury secondary to dehydration and HCTZ regimen 4. Cervical radiculopathy 5. Hypertension 6. Hyperlipidemia 7. Anxiety/depression - Secondary Discharge Diagnosis Chronic Problems Anxiety and depression (Chronic) Hypertension (Chronic) Dyslipidemia (Chronic) Cervical radiculopathy (Chronic) Hospital Course and Treatment Imaging Results: Diagnostic Data Chest X-Ray 05/15/19 20:32 IMPRESSION: Mild pulmonary interstitial prominence. Electronically Signed: Nikhil Turner DO at 20:54 EDT Tel [phone], Service support , Chest CTA 05/15/19 21:00 IMPRESSION: No demonstrated pulmonary embolism or arterial dissection. Mediastinal adenopathy requiring further evaluation. Hiatal hernia. Electronically Signed: Nikhil Turner DO at 22:28 EDT Tel [phone], Service support , Brain CT 05/15/19 21:44 IMPRESSION: Normal limited unenhanced CT scan of the brain. Electronically Signed: Nikhil Turner DO at 22:18 EDT Tel [phone], Service support , Cervical Spine CT 05/15/19 21:44 IMPRESSION: Mild degenerative changes of the cervical spine. Electronically Signed: Nikhil Turner DO at 22:37 EDT Tel [phone], Service support , Abdomen X-Ray 05/15/19 23:54 IMPRESSION: No acute abnormality of the abdomen and pelvis. Electronically Signed: Rocio Franco at 1:52 EDT Tel , Service support , Cervical Spine MRI 05/16/19 00:38 IMPRESSION: A mild diffusely bulging disc is noted at the C6-7 intervertebral disc space level with no evidence of disc herniation or spinal stenosis. Electronically Signed: Pankaj Hernández, at 11:29 EDT Tel , Service support , Brain MRI 05/16/19 05:55 IMPRESSION: Normal unenhanced MRI of the brain. Electronically Signed: Pankaj Hernández, at 11:14 EDT Tel , Service support , Operations: None Procedures: 2-D Echocardiogram Summary of Care Provided: The patient is a 58 year old F admitted 05/15/2019 due to syncopal episode. 1. Syncope-suspect secondary to hypotension as a result of dehydration. Troponin negative. EKG without ST-T changes. Echocardiogram with EF 60%. Orthostatic vitals negative. No arrhythmias noted on telemetry. Urinalysis unremarkable. CTA without evidence of PE or arterial dissection. MRI of brain normal. Follow-up with primary care provider in 3 to 5 days. 2. Hypotension-suspect secondary to volume depletion. HCTZ discontinued. Blood pressure improved with hydration. 3. Acute kidney injury secondary to dehydration and HCTZ regimen-resolved with IV fluids. HCTZ discontinued at discharge. 4. Cervical radiculopathy-continue home gabapentin regimen. MRI of cervical spine shows mild bulging disc at C6-C7, no evidence of disc herniation or spinal stenosis. Follow-up with primary care physician, orthopedic referral if symptoms are persistent. 5. Hypertension-losartan/HCTZ combo discontinued. Patient will be discharged on losartan 50 mg daily only. 6. Hyperlipidemia-continue statin regimen. 7. Anxiety/depression-continue home sertraline regimen. General: Alert, Oriented x3, Cooperative HEENT: Atraumatic, PERRLA, EOMI, Normocephalic Oral: Moist Mucosa Neck: Supple, No JVD, Negative Carotid Bruits Lungs: Clear to auscultation, Normal air movement Cardiovascular: Regular rate, Regular Rhythm, Normal S1, Normal S2, No murmurs Abdomen: Bowel Sounds Present, Soft, Non Tender, Non-Distended Extremities: No edema, Capillary Refill Less than 3 Seconds Skin: No rashes, No breakdown Musculoskeletal: No Tenderness to Palpation of Joints or Extremities, Arthritic Changes Neurological: Cranial nerves II-XII grossly intact, Neuro grossly intact Psych/Mental Status: Flat affect Patient seen and examined prior to discharge. Physical assessment as noted above. Patient is stable for discharge with follow up recommendations as noted above. This patient was seen by MEETA Braxton under the supervision of Dr. Curry. - Physical Exam Vital Signs Temp Pulse Resp BP Pulse Ox 97.8 F 60 16 149/81 H 95 05/16/19 10:25 05/16/19 11:00 05/16/19 10:25 05/16/19 10:25 05/16/19 10:25 Oxygen Flow Rate (L/min) 2 Oxygen Delivery Method Room Air Weight: 155 lb 13.869 oz Body Mass Index (BMI) 23.7 Finger Stick Blood Glucose 116 Orthostatic Vital Signs Start: 05/16/19 01:28 Freq: q24h Status: Active Protocol: Activity Type Activity Date Activity User E-Sign Co-Sign Detail Recorded Client Recorded Date Recorded By Document 05/16/19 04:00 [id number] 05/16/19 04:01 CS 05/16/19 04:00 Orthostatic Vitals Standing -Blood Pressure (90/60-120/80) 124/88 H -Extremity Use Right Arm -Pulse Rate (60-100) 63 Sitting -Blood Pressure (90/60-120/80) 118/74 -Extremity Use Right Arm -Pulse Rate (60-100) 67 Lying -Blood Pressure (90/60-120/80) 119/76 -Extremity Use Right Arm -Pulse Rate (60-100) 55 L Intake and Output for Last 24 Hours 05/14/19 05/15/19 05/16/19 23:59 23:59 23:59 Intake Total 1000 / 1000 931.67 / 931.67 Output Total 0 / 0 Balance 1000 / 1000 931.67 / 931.67 Laboratory Tests Past 24 Hrs 05/15/19 05/15/19 05/15/19 20:20 20:20 20:20 WBC 9.4 RBC 4.47 Hgb 16.9 H Hct 48.1 H MCV 107.6 H MCH 37.8 H MCHC 35.1 RDW Std Deviation 46.8 H RDW Coeff of Jose 11.7 Plt Count 257 MPV 9.5 Immature Gran % (Auto) 0.400 Neut % (Auto) 72.1 H Lymph % (Auto) 15.6 L [place] % (Auto) 11.0 H Eos % (Auto) 0.4 Baso % (Auto) 0.5 Absolute Neuts (auto) 6.8 Absolute Lymphs (auto) 1.46 Nucleated RBC % 0 D-Dimer Quant (PE/DVT) 0.72 H* Sodium 132 L Potassium 4.0 Chloride 95 L Carbon Dioxide 26.0 Anion Gap 11 BUN 19 H Creatinine 1.40 H Estim Creat Clear Calc 45.26 Est GFR (MDRD) Af Amer 50 L Est GFR (MDRD) Non-Af 41 L BUN/Creatinine Ratio 13.6 Glucose 116 H Hemoglobin A1c Calcium 8.6 Magnesium Total Bilirubin Direct Bilirubin AST ALT Alkaline Phosphatase Troponin I < 0.015 B-Natriuretic Peptide Total Protein Albumin Globulin Triglycerides Cholesterol LDL Cholesterol VLDL Cholesterol HDL Cholesterol TSH Urine Color Urine Clarity Urine pH Ur Specific [place] Urine Protein Urine Glucose (UA) Urine Ketones Urine Occult Blood Urine Nitrite Urine Bilirubin Urine Urobilinogen Ur Leukocyte Esterase Urine RBC Urine WBC Ur Squamous Epith Cells Urine Bacteria Urine Mucus 05/15/19 05/15/19 05/16/19 20:20 20:20 01:05 WBC RBC Hgb Hct MCV MCH MCHC RDW Std Deviation RDW Coeff of Jose Plt Count MPV Immature Gran % (Auto) Neut % (Auto) Lymph % (Auto) [place] % (Auto) Eos % (Auto) Baso % (Auto) Absolute Neuts (auto) Absolute Lymphs (auto) Nucleated RBC % D-Dimer Quant (PE/DVT) Sodium Potassium Chloride Carbon Dioxide Anion Gap BUN Creatinine Estim Creat Clear Calc Est GFR (MDRD) Af Amer Est GFR (MDRD) Non-Af BUN/Creatinine Ratio Glucose Hemoglobin A1c Calcium Magnesium 1.7 Total Bilirubin 1.10 H Direct Bilirubin 0.12 AST 20 ALT 9 L Alkaline Phosphatase 107 Troponin I < 0.015 B-Natriuretic Peptide 16.3 Total Protein 7.0 Albumin 2.9 L Globulin 4.1 Triglycerides Cholesterol LDL Cholesterol VLDL Cholesterol HDL Cholesterol TSH Urine Color Urine Clarity Urine pH Ur Specific [place] Urine Protein Urine Glucose (UA) Urine Ketones Urine Occult Blood Urine Nitrite Urine Bilirubin Urine Urobilinogen Ur Leukocyte Esterase Urine RBC Urine WBC Ur Squamous Epith Cells Urine Bacteria Urine Mucus 05/16/19 05/16/19 05/16/19 03:26 03:50 06:27 WBC RBC Hgb Hct MCV MCH MCHC RDW Std Deviation RDW Coeff of Jose Plt Count MPV Immature Gran % (Auto) Neut % (Auto) Lymph % (Auto) [place] % (Auto) Eos % (Auto) Baso % (Auto) Absolute Neuts (auto) Absolute Lymphs (auto) Nucleated RBC % D-Dimer Quant (PE/DVT) Sodium Potassium Chloride Carbon Dioxide Anion Gap BUN Creatinine Estim Creat Clear Calc Est GFR (MDRD) Af Amer Est GFR (MDRD) Non-Af BUN/Creatinine Ratio Glucose Hemoglobin A1c 5.2 Calcium Magnesium Total Bilirubin Direct Bilirubin AST ALT Alkaline Phosphatase Troponin I < 0.015 B-Natriuretic Peptide Total Protein Albumin Globulin Triglycerides Cholesterol LDL Cholesterol VLDL Cholesterol HDL Cholesterol TSH Urine Color Yellow Urine Clarity Clear Urine pH 6.0 Ur Specific [place] 1.010 Urine Protein Negative Urine Glucose (UA) Normal Urine Ketones Negative Urine Occult Blood Negative Urine Nitrite Negative Urine Bilirubin Negative Urine Urobilinogen Normal Ur Leukocyte Esterase Negative Urine RBC 0 SEEN Urine WBC 0 SEEN Ur Squamous Epith Cells 0-5 SEEN Urine Bacteria 0 SEEN Urine Mucus 0 SEEN 05/16/19 06:27 WBC RBC Hgb Hct MCV MCH MCHC RDW Std Deviation RDW Coeff of Jose Plt Count MPV Immature Gran % (Auto) Neut % (Auto) Lymph % (Auto) [place] % (Auto) Eos % (Auto) Baso % (Auto) Absolute Neuts (auto) Absolute Lymphs (auto) Nucleated RBC % D-Dimer Quant (PE/DVT) Sodium 135 L Potassium 3.5 Chloride 99 Carbon Dioxide 29.0 Anion Gap 7 BUN 17 Creatinine 0.83 Estim Creat Clear Calc 76.35 Est GFR (MDRD) Af Amer 91 Est GFR (MDRD) Non-Af 75 BUN/Creatinine Ratio 20.5 H Glucose 86 Hemoglobin A1c Calcium 8.5 Magnesium Total Bilirubin Direct Bilirubin AST ALT Alkaline Phosphatase Troponin I < 0.015 B-Natriuretic Peptide Total Protein Albumin Globulin Triglycerides 157 Cholesterol 140 LDL Cholesterol 87 VLDL Cholesterol 31 HDL Cholesterol 22 L TSH 1.44 Urine Color Urine Clarity Urine pH Ur Specific [place] Urine Protein Urine Glucose (UA) Urine Ketones Urine Occult Blood Urine Nitrite Urine Bilirubin Urine Urobilinogen Ur Leukocyte Esterase Urine RBC Urine WBC Ur Squamous Epith Cells Urine Bacteria Urine Mucus POC Glucose 05/16/19 05/16/19 05/15/19 11:43 06:45 20:19 POC Glucose 147 H 93 116 H Discharge Diet: Low fat/ Low Cholesterol Discharge Activity: Return to Normal Activity Call your doctor if you observe: Shortness of breath, Dizziness, Fainting spells, Chest pain Home Medications: Medications to take at Discharge Atorvastatin Calcium 20 mg PO DAILY 05/15/19 Gabapentin [Neurontin] 300 mg PO TID 05/15/19 Sertraline HCl [Zoloft] 50 mg PO DAILY 05/15/19 Losartan Potassium 50 mg PO DAILY #30 tab 05/16/19 Following Prescrptions Were Given to Patient: Losartan Potassium 50 mg PO DAILY #30 tab Transmission Status: Received by [id number] Primary Care Physician: Oscar Marx [[facility]] - Please follow up with your Primary Care Physician in: 3-5 days Disposition: Home Minutes spent on discharge:: 35 Patient Condition:: Stable Medical Necessity - Tobacco Use Smoking Status: Current every day smoker Meaningful Use Info Meaningful Use Diagnoses (Choose all that apply): None applicable <Moon Curry - Last Filed: 05/16/19 16:35> Discharge Date and Diagnosis - Secondary Discharge Diagnosis Chronic Problems Anxiety and depression (Chronic) Hypertension (Chronic) Dyslipidemia (Chronic) Cervical radiculopathy (Chronic) Hospital Course and Treatment Summary of Care Provided: Patient seen by Martina TIM under my supervision The patient is a 58 year old F with an extensive past medical history as listed which includes hypertension, dyslipidemia, cervical radiculopathy and anxiety and depression. She was admitted through the ED on 05/15/2019 with a complaint of syncope. Patient states she has been under a lot of stress for the past 2 to 3 weeks. She went home after going to buy [employer] and states she started feeling lightheaded and dizzy and diaphoretic and then passed out for about 30 seconds. Afterwards she came to but subsequently passed out again for about 2 to 3 minutes. She is never had such symptoms before. In the ED blood pressure was noted to be low at 65/40 and heart rate was in the 70s. EKG showed normal sinus rhythm with no acute ST changes though EKG done by EMS showed normal sinus rhythm with rate of 99 bpm and questionable slight ST elevation in lead V2. However this was not seen on repeat EKGs. She was admitted to be managed for syncope likely due to hypotension. She was hydrated with IV fluids and blood pressure medications were held. Brain CT was normal. CT angiogram showed no PE or arterial dissection and showed mediastinal adenopathy which was recommended for further evaluation. Cervical spine MRI showed mildly diffuse bulging disc at C6-C7 with no evidence of disc herniation or spinal stenosis and brain MRI that was also normal. 2D echocardiogram done showed EF of 60% with no evidence of diastolic dysfunction, and no regional wall motion abnormalities. Patient's blood pressure normalized with hydration. Patient had been started on hydrochlorothiazide and losartan which was likely contributing to hypotension. Hydrochlorothiazide was discontinued and she was discharged home on losartan 50 mg daily. She is to follow-up with her primary care doctor concerning the chest CT mediastinal adenopathy as well as cervical radiculopathy, for referral to pulmonology and neurosurgery as deemed appropriate Patient seen and examined prior to discharge. 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 She did look quite anxious. Review of systems otherwise negative. Labs and vitals reviewed. Home medications reviewed and reconciled. o/e: Vital Signs Height 5 ft 8 in Weight: 155 lb 13.869 oz Weight in Pounds 155.9 lbs Pulse Ox 94 Temperature 98.3 F Pulse Rate [Standing] 63 Pulse Rate [Sitting] 67 Pulse Rate [Lying] 55 Pulse Rate 57 Respiratory Rate 18 Blood Pressure [Standing] 124/88 Blood Pressure [Sitting] 118/74 Blood Pressure [Lying] 119/76 Blood Pressure 115/74 Blood Pressure Position Semi-Fowlers [] General: Alert, Oriented x3, Cooperative HEENT: Atraumatic, PERRLA, EOMI, Normocephalic Oral: Moist Mucosa Neck: Supple, No JVD, Negative Carotid Bruits Lungs: Clear to auscultation, Normal air movement Cardiovascular: Regular rate, Regular Rhythm, Normal S1, Normal S2, No murmurs Abdomen: Bowel Sounds Present, Soft, Non Tender, Non-Distended Extremities: No edema, Capillary Refill Less than 3 Seconds Skin: No rashes, No breakdown Musculoskeletal: No Tenderness to Palpation of Joints or Extremities, Arthritic Changes Neurological: Cranial nerves II-XII grossly intact, Neuro grossly intact Psych/Mental Status: looks anxious Plan as above. - Physical Exam Vital Signs Temp Pulse Resp BP Pulse Ox 98.3 F 57 L 18 115/74 94 05/16/19 15:09 05/16/19 15:09 05/16/19 15:09 05/16/19 15:09 05/16/19 15:09 Oxygen Flow Rate (L/min) 2 Oxygen Delivery Method Room Air Weight: 155 lb 13.869 oz Body Mass Index (BMI) 23.7 Finger Stick Blood Glucose 116 Orthostatic Vital Signs Start: 05/16/19 01:28 Freq: q24h Status: Active Protocol: Activity Type Activity Date Activity User E-Sign Co-Sign Detail Recorded Client Recorded Date Recorded By Document 05/16/19 04:00 [id number] 05/16/19 04:01 CS 05/16/19 04:00 Orthostatic Vitals Standing -Blood Pressure (90/60-120/80) 124/88 H -Extremity Use Right Arm -Pulse Rate (60-100) 63 Sitting -Blood Pressure (90/60-120/80) 118/74 -Extremity Use Right Arm -Pulse Rate (60-100) 67 Lying -Blood Pressure (90/60-120/80) 119/76 -Extremity Use Right Arm -Pulse Rate (60-100) 55 L Intake and Output for Last 24 Hours 05/14/19 05/15/19 05/16/19 23:59 23:59 23:59 Intake Total 1000 / 1000 1291.67 / 1291.67 Output Total 0 / 0 Balance 1000 / 1000 1291.67 / 1291.67 Laboratory Tests Past 24 Hrs 05/15/19 05/15/19 05/15/19 20:20 20:20 20:20 WBC 9.4 RBC 4.47 Hgb 16.9 H Hct 48.1 H MCV 107.6 H MCH 37.8 H MCHC 35.1 RDW Std Deviation 46.8 H RDW Coeff of Jose 11.7 Plt Count 257 MPV 9.5 Immature Gran % (Auto) 0.400 Neut % (Auto) 72.1 H Lymph % (Auto) 15.6 L [place] % (Auto) 11.0 H Eos % (Auto) 0.4 Baso % (Auto) 0.5 Absolute Neuts (auto) 6.8 Absolute Lymphs (auto) 1.46 Nucleated RBC % 0 D-Dimer Quant (PE/DVT) 0.72 H* Sodium 132 L Potassium 4.0 Chloride 95 L Carbon Dioxide 26.0 Anion Gap 11 BUN 19 H Creatinine 1.40 H Estim Creat Clear Calc 45.26 Est GFR (MDRD) Af Amer 50 L Est GFR (MDRD) Non-Af 41 L BUN/Creatinine Ratio 13.6 Glucose 116 H Hemoglobin A1c Calcium 8.6 Magnesium Total Bilirubin Direct Bilirubin AST ALT Alkaline Phosphatase Troponin I < 0.015 B-Natriuretic Peptide Total Protein Albumin Globulin Triglycerides Cholesterol LDL Cholesterol VLDL Cholesterol HDL Cholesterol TSH Urine Color Urine Clarity Urine pH Ur Specific [place] Urine Protein Urine Glucose (UA) Urine Ketones Urine Occult Blood Urine Nitrite Urine Bilirubin Urine Urobilinogen Ur Leukocyte Esterase Urine RBC Urine WBC Ur Squamous Epith Cells Urine Bacteria Urine Mucus 05/15/19 05/15/19 05/16/19 20:20 20:20 01:05 WBC RBC Hgb Hct MCV MCH MCHC RDW Std Deviation RDW Coeff of Jose Plt Count MPV Immature Gran % (Auto) Neut % (Auto) Lymph % (Auto) [place] % (Auto) Eos % (Auto) Baso % (Auto) Absolute Neuts (auto) Absolute Lymphs (auto) Nucleated RBC % D-Dimer Quant (PE/DVT) Sodium Potassium Chloride Carbon Dioxide Anion Gap BUN Creatinine Estim Creat Clear Calc Est GFR (MDRD) Af Amer Est GFR (MDRD) Non-Af BUN/Creatinine Ratio Glucose Hemoglobin A1c Calcium Magnesium 1.7 Total Bilirubin 1.10 H Direct Bilirubin 0.12 AST 20 ALT 9 L Alkaline Phosphatase 107 Troponin I < 0.015 B-Natriuretic Peptide 16.3 Total Protein 7.0 Albumin 2.9 L Globulin 4.1 Triglycerides Cholesterol LDL Cholesterol VLDL Cholesterol HDL Cholesterol TSH Urine Color Urine Clarity Urine pH Ur Specific [place] Urine Protein Urine Glucose (UA) Urine Ketones Urine Occult Blood Urine Nitrite Urine Bilirubin Urine Urobilinogen Ur Leukocyte Esterase Urine RBC Urine WBC Ur Squamous Epith Cells Urine Bacteria Urine Mucus 05/16/19 05/16/19 05/16/19 03:26 03:50 06:27 WBC RBC Hgb Hct MCV MCH MCHC RDW Std Deviation RDW Coeff of Jose Plt Count MPV Immature Gran % (Auto) Neut % (Auto) Lymph % (Auto) [place] % (Auto) Eos % (Auto) Baso % (Auto) Absolute Neuts (auto) Absolute Lymphs (auto) Nucleated RBC % D-Dimer Quant (PE/DVT) Sodium Potassium Chloride Carbon Dioxide Anion Gap BUN Creatinine Estim Creat Clear Calc Est GFR (MDRD) Af Amer Est GFR (MDRD) Non-Af BUN/Creatinine Ratio Glucose Hemoglobin A1c 5.2 Calcium Magnesium Total Bilirubin Direct Bilirubin AST ALT Alkaline Phosphatase Troponin I < 0.015 B-Natriuretic Peptide Total Protein Albumin Globulin Triglycerides Cholesterol LDL Cholesterol VLDL Cholesterol HDL Cholesterol TSH Urine Color Yellow Urine Clarity Clear Urine pH 6.0 Ur Specific [place] 1.010 Urine Protein Negative Urine Glucose (UA) Normal Urine Ketones Negative Urine Occult Blood Negative Urine Nitrite Negative Urine Bilirubin Negative Urine Urobilinogen Normal Ur Leukocyte Esterase Negative Urine RBC 0 SEEN Urine WBC 0 SEEN Ur Squamous Epith Cells 0-5 SEEN Urine Bacteria 0 SEEN Urine Mucus 0 SEEN 05/16/19 06:27 WBC RBC Hgb Hct MCV MCH MCHC RDW Std Deviation RDW Coeff of Jose Plt Count MPV Immature Gran % (Auto) Neut % (Auto) Lymph % (Auto) [place] % (Auto) Eos % (Auto) Baso % (Auto) Absolute Neuts (auto) Absolute Lymphs (auto) Nucleated RBC % D-Dimer Quant (PE/DVT) Sodium 135 L Potassium 3.5 Chloride 99 Carbon Dioxide 29.0 Anion Gap 7 BUN 17 Creatinine 0.83 Estim Creat Clear Calc 76.35 Est GFR (MDRD) Af Amer 91 Est GFR (MDRD) Non-Af 75 BUN/Creatinine Ratio 20.5 H Glucose 86 Hemoglobin A1c Calcium 8.5 Magnesium Total Bilirubin Direct Bilirubin AST ALT Alkaline Phosphatase Troponin I < 0.015 B-Natriuretic Peptide Total Protein Albumin Globulin Triglycerides 157 Cholesterol 140 LDL Cholesterol 87 VLDL Cholesterol 31 HDL Cholesterol 22 L TSH 1.44 Urine Color Urine Clarity Urine pH Ur Specific [place] Urine Protein Urine Glucose (UA) Urine Ketones Urine Occult Blood Urine Nitrite Urine Bilirubin Urine Urobilinogen Ur Leukocyte Esterase Urine RBC Urine WBC Ur Squamous Epith Cells Urine Bacteria Urine Mucus POC Glucose 05/16/19 05/16/19 05/15/19 11:43 06:45 20:19 POC Glucose 147 H 93 116 H Code Visit OBSV E&M: [id number] Observation care discharge
--- NOTE | 2019-05-16 15:13 | CASEMGMT ---
SW reviewed patient's d/c instructions and she is being d/c'd with one new medication and it is $4 for a 30 day supply at [facility]. SW let patient know this information. aMgaly GARCIA MSW
--- NOTE | 2019-05-16 15:19 | PCM.WORK.EX ---
Work/School Excuse Work/School Excuse for:: Patient Please excuse this person from:: Work From: 05/15/19 through: 05/19/19 - or until PCP follow up
== END 2019-05-16 19:35 | disposition home or self-care (01) ==
LOC: ED 20:51 → PCU 05-16 00:15
PROVIDERS: Admitting Provider Internal Medicine; Emergency Provider Emergency Medicine; Family Provider Physician Assistant; PCP Physician Assistant; Visit Provider Student in an Organized Health Care Education/Training Program
DX: R55 Syncope and collapse (principal); I10 Essential (primary) hypertension; F17.200 Nicotine dependence, unspecified, uncomplicated; F41.9 Anxiety disorder, unspecified; F32.9 Major depressive disorder, single episode, unspecified; E78.5 Hyperlipidemia, unspecified; M54.12 Radiculopathy, cervical region; R29.700 NIHSS score 0; R73.9 Hyperglycemia, unspecified; N17.9 Acute kidney failure, unspecified; K59.00 Constipation, unspecified; Z79.899 Other long term (current) drug therapy
CPT/HCPCS: 36415; 70450; 70551; 71045; 71275; 72125; 72141; 74019; 80048; 80061; 80076; 81001; 82962; 83036; 83735; 83880; 84443; 84484; 85025; 85379; 87086; 87088; 93005; 93306; 96361; 96372; 96374; 97161; 97166; 99218; 99285; 99406; J7030; Q9967; A4216; G0378

== ENCOUNTER 2023-02-12 14:00 | Emergency (ER) | payer OTHER, SELFPAY ==
[2023-02-12 14:01] VITALS: BP 154/124; PULSE 50; RESP 24; TEMP 36.6; O2SAT 82; BMI 22.3
[2023-02-12 14:06] VITALS: BP 223/129; PULSE 94; RESP 17; TEMP 37.2; O2SAT 95
--- NOTE | 2023-02-12 14:18 | EKG12_ITS ---
Test Reason : HYPERTENSION Blood Pressure : / mmHG Vent. Rate : 090 BPM Atrial Rate : 090 BPM P-R Int : 168 ms QRS Dur : 106 ms QT Int : 380 ms P-R-T Axes : -05 -43 074 degrees QTc Int : 464 ms Normal sinus rhythm Left axis deviation Left ventricular hypertrophy with repolarization abnormality ( R in aVL , Abiodun product ) Cannot rule out Septal infarct , age undetermined Abnormal ECG Confirmed by KATELIN MCNAMARA, ABBIE ([id number]), commercial production editor SHAUN TREVINO ([id number]) on 02/14/2023 10:19:33 AM Referred By: VIANNEY/WILL Confirmed By:ABBIE THOMASON MD
[2023-02-12 14:39] VITALS: BP 207/122; PULSE 98; RESP 18; TEMP 36.9; O2SAT 97
--- NOTE | 2023-02-12 14:44 | CT_ITS ---
STUDY: CT ABDOMEN AND PELVIS WITHOUT CONTRAST REASON FOR EXAM: Female, 62 years old. Left lower quadrant abdominal pain. Urinary urgency. RADIATION DOSAGE (If Supplied By Facility): CTDIvol = ( 7.01 ) mGy, DLP = ( 318.61 ) mGycm TECHNIQUE: Transaxial images were obtained from the dome of the diaphragm to the symphysis pubis without oral contrast, and without intravenous contrast. Sagittal and coronal images were reconstructed. Individualized dose optimization techniques were used for this CT. COMPARISON: None. FINDINGS: Minimal increase in linear markings at the lung bases suggestive of bibasilar atelectasis. The visualized portions of the heart are within normal limits. Normal liver. Normal gallbladder and extrahepatic biliary system. Normal spleen. Normal pancreas. Normal bilateral adrenal glands. Normal right kidney. There is enlargement of the left kidney. Left hydronephrosis and hydroureter down to the ureteral vesicle junction. No obstructive uropathy is seen at this time. There is a small hiatal hernia. Normal small intestine. There are multiple colonic diverticula consistent with diverticulosis. The appendix is visualized and appears normal. There is diffuse atherosclerotic calcification of the abdominal aorta, without a demonstrated aneurysm. Normal inferior vena cava. Normal retroperitoneum. Diffuse bladder wall thickening especially superiorly into the left side of the dome of the urinary bladder. A neoplastic process should be ruled out. Increased focal soft tissue density is seen adjacent to the bladder in the region of the dome on the left side. Possible mass lesions should be ruled out. There is absence of the uterus consistent with a prior hysterectomy. Normal abdominal wall. There are diffuse degenerative changes of the visualized lumbar spine. CT/Abdomen/Pelvis without Cont IMPRESSION: Diffuse enlargement of the left kidney with the moderate degree of left hydronephrosis and hydroureter down to the ureteral vesicle junction. No calculus is seen at that site. There is evidence of diffuse bladder wall thickening especially along its superior left side of the dome with increased markings in the surrounding peritoneal fat at that site. A neoplastic process should be ruled out. Electronically Signed: Xavi Lopez MD at 15:34 EDT ,
--- NOTE | 2023-02-12 14:46 | ED.VIS.GI ---
HPI HPI - GI History of Present Illness Chief Complaint: Abd Pain Informant: patient Abdominal Pain/Flank Pain Onset: Days (2) Context: Gradual Onset Timing: Continuous Quality: Aching Location: LUQ, LLQ and Left Flank Worsened by: Nothing Relieved by: Nothing Nausea/Vomiting/Emesis GI Symptom: Positive for Nausea and Vomiting Onset: Yesterday Quality: Positive for Nonbilious; Negative for Blood streaks, Coffee ground or Hematemesis Diarrhea/Melena/Hematochezia GI Symptom: Positive for Hematochezia (With straining); Negative for Diarrhea or Melena Associated Symptoms Associated Symptoms: Positive for Dysuria, Frequency and Hematuria Narrative Narrative: Patient presents with abdominal pain that has been constant for the past 2 days. Patient states it came on gradually. Patient states it became worse yesterday. Patient describes her pain as aching. Patient states pain is over the left side of her abdomen and into her left back. Patient admits to some nausea and vomiting. Patient denies any hematemesis or coffee-ground emesis. Patient denies any diarrhea. Patient admits to some occasional constipation. Patient states she has noted some blood in her stools but this is with straining. Patient admits to some urgency and dysuria over the past few days. Patient states that she has also had some urinary frequency since yesterday. Patient admits to some subjective chills. [facility] Medical History (Updated 02/12/23 @ 17:[address] Caesar Maravilla, ) COPD (chronic obstructive pulmonary disease) Hypertension Home Medications atorvastatin 20 mg tablet 20 mg PO DAILY 05/15/19 [History Last Taken 05/15/19] gabapentin 300 mg capsule 300 mg PO TID 05/15/19 [History Last Taken 05/15/19] sertraline 50 mg tablet 50 mg PO DAILY 05/15/19 [History Last Taken 05/15/19] amLODIPine 02/12/23 [History Last Taken Unknown] ciprofloxacin HCl 500 mg tablet 500 mg PO BID #14 TABLETS 02/12/23 [Rx Last Taken Unknown] hydrocodone-acetaminophen 5-325mg 5mg-325mg 1 tab PO Q6H PRN PRN Pain 3 days #10 TABLETS 02/12/23 [Rx Last Taken Unknown] Allergy/AdvReac Type Severity Reaction Status Date / Time No Known Allergies Allergy Verified 02/12/23 14:01 Surgical History (Updated 02/12/23 @ 14:[address] Caesar Maravilla DO) History of hysterectomy Social History Smoking Status: Current every day smoker tobacco type: cigarettes ROS ROS ED Constitutional Constitutional ED: Reports chills and subjective; Denies fever(s) Eyes Eyes: Denies blurry vision or change in vision ENT ENT ED: Denies rhinorrhea or sore throat Cardiovascular Cardiovascular: Denies chest pain or palpitations Respiratory/Chest Respiratory/Chest: Denies cough or dyspnea Gastrointestinal Gastrointestinal: Reports nausea and vomiting Genitourinary Genitourinary ED: Reports dysuria and urinary frequency; Denies hematuria Musculoskeletal Musculoskeletal: Reports back pain; Denies neck pain Integumentary Denies abscess or rash Neurologic Neurologic: Reports headache(s); Denies weakness Allergic/Immunologic Allergic/Immunologic ED: Denies mouth swelling or urticaria EXAM Physical Exam Const Vital Signs: 02/12/23 14:01 02/12/23 14:05 02/12/23 14:20 Temperature 97.9 F Temperature Source Temporal Pulse Rate 50 L Respiratory Rate 24 H Respiratory Effort Short of Breath Respiratory Pattern Tachypnea Blood Pressure 154/124 H Blood Pressure Mean 134 Pulse Ox 82 Oxygen Delivery Method Room Air Nasal Cannula Oxygen Flow Rate (L/min) 2 02/12/23 14:06 02/12/23 14:39 02/12/23 16:30 Temperature 98.9 F 98.4 F Temperature Source Temporal Oral Pulse Rate 94 98 96 Respiratory Rate 17 18 18 Respiratory Effort Respiratory Pattern Blood Pressure 223/129 H 207/122 H 188/106 H Blood Pressure Mean 160 150 133 Pulse Ox 95 97 96 Oxygen Delivery Method Room Air Room Air Room Air Oxygen Flow Rate (L/min) Positive well nourished and well developed General Appearance ED: well developed HEENT Reports moist mucous membranes Neck supple and no JVD Resp normal respiratory effort and clear to auscultation bilaterally Cardio regular rate, regular rhythm and no murmurs GI normal to inspection, nondistended, normoactive bowel sounds Palpation: soft and tender LLQ and LUQ; Negative for guarding or rebound tenderness present Extremity normal to inspection General Extremety ED: Negative for edema or tenderness General Extremity: Negative for edema Neuro oriented x3, CN's II-XII intact bilaterally and no sensory deficits noted Sensorium / Orientation: alert Motor Exam: strength 5/5 throughout Psych mental status grossly normal Skin no rashes or lesions noted MDM MDM MDM Narrative Medical decision making narrative: Differential diagnosis includes pyelonephritis, urinary tract infection, ureteral calculus, diverticulitis, diverticulosis, colitis, bowel obstruction, perforation, and pancreatitis. CBC will be obtained to assess for leukocytosis and anemia. Comprehensive metabolic profile will be obtained to assess for hepatic function, renal function, and electrolyte abnormality. Lipase will be obtained to assess for pancreatitis. Urinalysis will be obtained to assess for urinary tract infection and hematuria. CT scan of the abdomen pelvis will be obtained to assess for ureteral calculus, pyelonephritis, pancreatitis, bowel obstruction, and perforation. Lab Data Attestation: I reviewed the patient's lab results. Lab results narrative: CBC was reviewed. There is a mild leukocytosis of 13.1. Hemoglobin was elevated at 19.9 and hematocrit was 57.3. Comprehensive metabolic profile was reviewed. Potassium was low at 3.0. Sodium was slightly low at 132. Chloride was slightly low at 95. Total bilirubin was slightly elevated at 1.2. The remainder was essentially within normal limits. Lipase was reviewed and was normal at 25. Urinalysis was reviewed. There are positive nitrites with a leukocyte esterase of 500 and 50-100 white blood cells. Occult blood was 150 but there were 0 red blood cells noted. Labs: Laboratory Results - last 24 hr 02/12/23 02/12/23 14:45 15:30 WBC 13.1 H RBC 5.21 Hgb 19.9 H* Hct 57.3 H MCV 110.0 H MCH 38.2 H MCHC 34.7 RDW Std Deviation 58.5 H RDW Coeff of Jose 14.1 Plt Count 212 MPV 10.4 Immature Gran % (Auto) 0.500 Neut % (Auto) 85.2 H Lymph % (Auto) 6.4 L [place] % (Auto) 7.2 Eos % (Auto) 0.2 Baso % (Auto) 0.5 Absolute Neuts (auto) 11.1 H Absolute Lymphs (auto) 0.84 Nucleated RBC % 0 Diff Path Review May foll Platelet Estimate ADEQUATE RBC Morphology N CHROM Anisocytosis 1+ Macrocytosis 1+ Sodium 132 L Potassium 3.0 L Chloride 95 L Carbon Dioxide 30.0 Anion Gap 7 BUN 8 Creatinine 0.65 Estim Creat Clear Calc 92.85 Est GFR (MDRD) Af Amer 119 Est GFR (MDRD) Non-Af 99 BUN/Creatinine Ratio 12.3 Glucose 108 H Calcium 9.6 Total Bilirubin 1.20 H AST 11 L ALT 13 Alkaline Phosphatase 145 H Total Protein 8.0 Albumin 3.0 L Globulin 5.0 H Albumin/Globulin Ratio 0.6 L Lipase 25 Urine Color Yellow Urine Clarity Cloudy Urine pH 7.0 Ur Specific [place] 1.010 Urine Protein 30 H Urine Glucose (UA) Normal Urine Ketones Negative Urine Occult Blood 150 H Urine Nitrite Positive H Urine Bilirubin Negative Urine Urobilinogen Normal Ur Leukocyte Esterase 500 H Urine RBC 0 SEEN Urine WBC 50-100 SEEN Ur Squamous Epith Cells 0 SEEN Urine Bacteria 1+ Urine Mucus 0 SEEN Radiography Diagnostic Testing: Clinical Impression(s) from Imaging Studies Abdomen/Pelvis CT 02/12/23 14:44 IMPRESSION: Diffuse enlargement of the left kidney with the moderate degree of left hydronephrosis and hydroureter down to the ureteral vesicle junction. No calculus is seen at that site. There is evidence of diffuse bladder wall thickening especially along its superior left side of the dome with increased markings in the surrounding peritoneal fat at that site. A neoplastic process should be ruled out. Electronically Signed: Xavi Lopez MD at 15:34 EDT , CT scan of the abdomen pelvis was obtained. There is left hydronephrosis and hydroureter down to the ureterovesicular junction. There is no calculus noted. There is diffuse bladder wall thickening especially along the superior left side of the dome with increased markings. Neoplastic process should be ruled out. This was interpreted by the radiologist and was also independently reviewed by myself. EKG Initial EKG: Attestation: I personally reviewed and interpreted this EKG as follows: Interpretation: Sinus Rhythm (90) and Non-Specific ST Changes Comments: EKG was obtained. On my independent interpretation, shows normal sinus rhythm with a rate of 90. MI interval was normal. QRS interval was normal. QTc interval was normal. There is left axis deviation at -43. There is evidence of left ventricular hypertrophy with strain pattern. The voltage criteria for left ventricular hypertrophy is new compared to previous EKG dated 05/15/2019. Prior EKG tracings: available for review Prior: Changed (The left ventricular hypertrophy is new compared to previous EKG dated 05/15/2019) Management Discussion w/another healthcare provider: Administrative Associate Treatment and Re-Evaluation :: Patient was given IV fluids, morphine, and Zofran. Patient was also given a dose of hydralazine for her elevated blood pressure of 207/122. Feeling better on reevaluation. Patient was advised of her findings. Case was discussed with Dr. Calhoun. She will be able to follow-up with the patient however, she stated that the patient may need a referral to a different neurologist should there be bladder cancer. Patient was also given a referral for Dr. Campbell. Patient was given a dose of Cipro here. Patient was given a prescription for Cipro. Urine culture was also ordered. Patient was instructed to follow-up in 3 to 5 days. Patient understood and was agreeable with the plan. All questions were answered. Discharge Plan Triage Chief Complaint: Abd Pain Other Complaint: Complaint Nausea/Vomiting ED Provider: Caesar Maravilla Dx/Rx/DC Orders Clinical Impression: Urinary tract infection, Hydronephrosis of left kidney Instructions: ED Cystitis Female Adult Prescriptions: New hydrocodone-acetaminophen [hydrocodone-acetaminophen] 5-325 mg tablet 1 tab PO Q6H PRN PRN (Reason: Pain) 3 Days Qty: 10 0RF ciprofloxacin HCl [ciprofloxacin HCl] 500 mg tablet 500 mg PO BID Qty: 14 0RF No Action atorvastatin 20 MG tablet 20 mg PO DAILY gabapentin 300 MG capsule 300 mg PO TID Patient Comments: TAKE 1 CAPSULE BY MOUTH THREE TIMES DAILY sertraline 50 MG tablet 50 mg PO DAILY amLODIPine Primary Care Provider: Maximo Sue Referrals: Leslye Calhoun MD [Med Staff - Active Staff] - 5-7 Days Momo Campbell MD [Med Staff - Active Staff] - 5-7 Days Maximo Sue PA [Primary Care Provider] - 3-5 Days Disposition Disposition: Home, Self Care
[2023-02-12] MEDS: Ondansetron 4 MG/2 ML Vial IV (14:51)
[2023-02-12] MEDS: hydrALAZINE 20 MG/ML Vial 5 MG IV (14:51)
[2023-02-12] MEDS: 0.9% Normal Saline 1,000 ML 1000 ML IV (14:51)
[2023-02-12] MEDS: Morphine 4 MG/ML Syringe IV (14:52)
[2023-02-12 15:09] LABS: Absolute Lymphocyte Count 0.84 X10^3/uL (0.83-4.51); Absolute Neutrophil Count 11.1 X10^3/uL (2.0-7.7); Basophil# 0.07 X10^3/uL; Basophil% 0.5 % (0-1); Eosinophil# 0.03 X10^3/uL; Eosinophils% 0.2 % (0-5); Lymphocyte # 0.84 X10^3/ul (0.83-4.51); Lymphocyte % 6.4 % (19-41); Mean Corp Hgb Conc 34.7 g/dL (32-36); Mean Corpuscular Hgb 38.2 pg (27.0-32.0); Mean Platelet Vol. 10.4 fl (6.2-12.0); Monocyte# 0.94 X10^3/uL; Monocyte% 7.2 % (0-10); NRBC Flagged by Analyzer 0 % (0-5); Neutrophil # 11.13 X10^3/uL (2.7-7.7); Neutrophil % 85.2 % (47-70); Platelet Count 212 K/mm3 (150-450); RBC Distribution Width CV 14.1 % (11.6-14.6); RBC Distribution Width SD 58.5 fl (35.1-43.9); Red Blood Count 5.21 M/mm3 (4.2-5.4); White Blood Count 13.1 K/mm3 (4.4-11.0)
[2023-02-12 15:16] LABS: Hematocrit 57.3 % (37-47)
[2023-02-12 15:17] LABS: Differential Indicated SCAN CRITERIA MET; Hemoglobin 19.9 g/dL (12.0-15.0)
[2023-02-12 15:20] LABS: ALB/GLOB Ratio 0.6 RATIO (0.9-2.4); AST(SGOT) 11 U/L (15-37); Alanine Aminotransfer ALT/SGPT 13 U/L (13-56); Alkaline Phosphatase 145 U/L (45-117); Anion Gap 7 (5-15); BUN 8 mg/dL (7-18); BUN/Creat Ratio 12.3 RATIO (10-20); Calcium,Total 9.6 mg/dL (8.5-10.1); Chloride 95 mmol/L (98-107); Creatinine, Serum 0.65 mg/dL (0.55-1.02); EST Glomerular Filtration Rate 99 mL/min (>60); Est Glom Filt Rate - Afr Amer 119 mL/min (>60); Estimated Creatinine Clearance 92.85 ml/min; Glucose 108 mg/dL (74-106); Lipase 25 U/L (13-75); Sodium Level 132 mmol/L (136-145)
[2023-02-12 15:42] LABS: Mucous, Urine 0 SEEN /hpf (<or=2+); Red Blood Cells-Urine 0 SEEN /hpf (0-5); Squamous Epithelial Cells - UA 0 SEEN /hpf (5-10)
[2023-02-12 15:48] LABS: Color, Urine Yellow (Yellow); Glucose, Dipstick Normal (Normal); Ketone-Dipstick Negative (Negative); Leukocyte Esterase-Dipstick 500 /ul (Negative); Nitrite-Dipstick Positive (Negative); Occult Blood-Urine 150 /ul (Negative); Protein-Dipstick 30 mg/dl (Negative); Urine Bilirubin Dipstick Negative (Negative); Urine Clarity Cloudy (Clear); Urine Urobilinogen Normal (Normal)
[2023-02-12 16:24] LABS: Bacteria 1+ /hpf (None Seen); White Blood Cells 50-100 SEEN /hpf (0-5)
[2023-02-12 16:30] VITALS: BP 188/106; PULSE 96; RESP 18; O2SAT 96
[2023-02-12 16:36] LABS: Anisocytosis 1+; Platelet Estimate ADEQUATE (ADEQ); Red Cell Morphology N CHROM NORMAL (NORM C&C)
[2023-02-12 16:37] LABS: Macrocytosis 1+
[2023-02-12] MEDS: Potassium Chloride Oral Tablet 20 MEQ 40 MEQ PO (16:58)
[2023-02-12 17:00] VITALS: BP 164/104; PULSE 108; RESP 18; O2SAT 90
[2023-02-12] MEDS: Ciprofloxacin 500 MG Tablet PO (17:10)
[2023-02-12] MEDS: HYDROcodone Bitartrate/Apap 5/325 Tablet PO (17:10)
[2023-02-12 17:17] VITALS: RESP 16
[2023-02-14 10:13] LABS: Pathologist Review Reviewed
== END 2023-02-12 17:19 | disposition home or self-care (01) ==
PROVIDERS: Emergency Provider Emergency Medicine; PCP Physician Assistant; Visit Provider Emergency Medicine
DX: N13.6 Pyonephrosis (principal); J44.9 Chronic obstructive pulmonary disease, unspecified; I10 Essential (primary) hypertension; K92.1 Melena; R31.9 Hematuria, unspecified; R11.2 Nausea with vomiting, unspecified; F17.210 Nicotine dependence, cigarettes, uncomplicated; Z79.899 Other long term (current) drug therapy
CPT/HCPCS: 74176; 80053; 81001; 83690; 85025; 93005; 96361; 96374; 96375; 99284; J7030; A4216; J2405